=== PATIENT | female | born 1980 | race Caucasian/White ===

== ENCOUNTER 2020-09-13 16:21 | Emergency (ER) | payer BC ==
[~2020-09-13] VITALS: Ht 160 cm; Wt 72.0 kg
[2020-09-13 17:48] VITALS: BP 117/66
[2020-09-13] MEDS ORDERED: NAPROXEN 500 MG TABLET PO STA (18:14)
--- NOTE | 2020-09-13 18:16 | PHYS DOC ---
Past Medical History Additional Past Medical Histor: POTS Past Surgical History: No Surgical History General Adult EDM: Chief Complaint: ANKLE PROBLEM HPI: HPI: Patient is a 40 year old female who presents to the ED today complaining of a throbbing 5 out of 10 left lateral ankle pain that began today after he missed a curb and fell. Patient states the pain is worse on weightbearing. Denies anything specifically relieving the pain. Denies hitting her head on the ground when she fell. Review of Systems: Review of Systems: Constitutional: Denies fever or chills. [] Musculoskeletal: Reports left ankle pain denies back pain Integument: Denies rash. [] Neurologic: Denies headache, focal weakness or sensory changes. [] Psychiatric: Denies depression or anxiety. [] Heart Score: C/O Chest Pain: N/A Risk Factors: Risk Factors: DM, Current or recent (<one month) smoker, HTN, HLP, family history of CAD, obesity. Risk Scores: Score 0 - 3: 2.5% MACE over next 6 weeks - Discharge Home Score 4 - 6: 20.3% MACE over next 6 weeks - Admit for Clinical Observation Score 7 - 10: 72.7% MACE over next 6 weeks - Early Invasive Strategies Allergies: Allergies: Allergies Coded Allergies Type Severity Reaction Last Updated Verified Sulfa (Sulfonamide Antibiotics) Allergy Unknown RASH, REDNESS 09/13/20 Yes Physical Exam: PE: Constitutional: Well developed, well nourished, no acute distress, non-toxic appearance. [] Skin: Warm, dry, no erythema, no rash. [] Back: No tenderness, no CVA tenderness. [] Extremities: Left ankle with no obvious deformity, soft tissue swelling noted on the lateral aspect of the left ankle. Tenderness on palpation of the lateral aspect of the left ankle. Full range of motion to the left ankle and toes. +2 left pedal pulse. Cap refill less than 2 seconds to left toes Neurologic: Alert and oriented X 3, normal motor function, normal sensory function, no focal deficits noted. [] Psychologic: Affect normal, judgement normal, mood normal. [] Current Patient Data: Vital Signs: Vital Signs Date Time Temp Pulse Resp B/P (MAP) Pulse Ox O2 Delivery O2 Flow Rate FiO2 09/13/20 17:48 98.4 84 16 117/66 98 Room Air 98.4 EKG: EKG: [] Radiology/Procedures: Radiology/Procedures: []PROCEDURE: ANKLE LEFT 3V XR EXAM OF ANKLE_LEFT 3V dated 09/13/2020 6:05 PM. History: Reason: PAIN / Spl. Instructions: / History: Pain. No history of trauma is given. Comparison: None. Findings: There is no fracture or dislocation. The bone density is normal. No abnormal periosteal reaction is seen. Joint spaces are maintained. Impression: 1. No acute bony abnormality evident. Electronically signed by: Davis Pugh Jr., MD (09/13/2020 6:19 PM) [facility] DICTATED and SIGNED BY: DAVIS PUGH Jr, MD DATE: 09/13/20 [id number] 0 Course & Med Decision Making: Course & Med Decision Making Pertinent Labs and Imaging studies reviewed. (See chart for details) This is a 40-year-old female patient presented to the ED today with left ankle pain that began after she stepped on a curb and fell. Left ankle x-rays interpreted by radiologist are negative for any acute findings. Ice elevation encouraged. Follow-up with Ortho in 1 week. Deion wrap and Aircast applied to the left ankle by the ED RN, neurovascular exam is intact. Dragon Disclaimer: Dragon Disclaimer: This electronic medical record was generated, in whole or in part, using a voice recognition dictation system. Departure Departure Impression: Primary Impression: Fall from standing Qualified Codes: W19.XXXA - Unspecified fall, initial encounter Additional Impression: Left ankle sprain Qualified Codes: S93.402A - Sprain of unspecified ligament of left ankle, initial encounter Disposition: HOME / SELF CARE / HOMELESS Condition: STABLE Referrals: NO PCP (PCP) ALESSANDRO BERGERON MD follow up in one week Patient Instructions: Ankle Sprain, Acute, with Phase I Rehab-SportsMed, Fall Prevention and Home Safety Additional Instructions: You were seen for left ankle pain, your left ankle x-rays are negative for any acute findings. You likely have left ankle sprain. Ice elevate the extremity. Use the Aircast provided as tolerated. Take the prescribed medications as needed for pain. Please follow-up with the provided orthopedic doctor or your own doctor in 1 week if pain persist. Scripts Hydrocodone/Ibuprofen (HYDROCODONE-IBUPROFEN 5-200 MG) 1 Each Tablet 1 TAB PO PRN Q6HRS PRN for PAIN, #10 TAB 0 Refills Prov: MICHELLE ROSAS APRN 09/13/20 MICHELLE ROSAS APRN Sep 13, 2020 18:16
--- NOTE | 2020-09-13 18:21 | RAD ---
XR EXAM OF ANKLE_LEFT 3V dated 09/13/2020 6:05 PM. History: Reason: PAIN / Spl. Instructions: / History: Pain. No history of trauma is given. Comparison: None. Findings: There is no fracture or dislocation. The bone density is normal. No abnormal periosteal reaction is s een. Joint spaces are maintained. Impression: 1. No acute bony abnormality evident. Electronically signed by: Duran Mcgowan Jr., MD (09/13/2020 6:19 PM) [facility]
[2020-09-13] MEDS ORDERED: HYDROcodone/APAP 5/325MG 1 TAB TABLET PO ONE (18:30)
[2020-09-13] MEDS ORDERED: HYDR-2934 PO (18:35)
== END 2020-09-13 18:43 | disposition home or self-care (01) ==
LOC: ER 16:21
DX: S93.402A Sprain of unspecified ligament of left ankle, initial encounter (principal); Z88.2 Allergy status to sulfonamides; W18.39XA Other fall on same level, initial encounter; Y93.89 Activity, other specified; Y92.89 Other specified places as the place of occurrence of the external cause; Y99.8 Other external cause status
CPT/HCPCS: 73610; 99283; L4350